=== PATIENT | female | born 1935 | race Caucasian/White ===

== ENCOUNTER 2021-10-31 06:43 | Emergency (ER) | payer MEDICARE ==
[~2021-10-31] VITALS: Ht 170.2 cm; Wt 79.4 kg
== END 2021-10-31 09:52 ==
LOC: ER 07:36
DX: Z48.01 Encounter for change or removal of surgical wound dressing (principal); I10 Essential (primary) hypertension; E78.5 Hyperlipidemia, unspecified; J44.9 Chronic obstructive pulmonary disease, unspecified; K21.9 Gastro-esophageal reflux disease without esophagitis; E03.9 Hypothyroidism, unspecified; F41.9 Anxiety disorder, unspecified; G30.9 Alzheimer's disease, unspecified; F02.80 Dementia in other diseases classified elsewhere, unspecified severity, without behavioral disturbance, psychotic disturbance, mood disturbance, and anxiety
CPT/HCPCS: 70450; 72125; 99284